=== PATIENT | female | born 1945 | race Caucasian/White ===

== ENCOUNTER 2023-10-10 06:32 | Outpatient (REF) | payer OTHER, SELFPAY ==
[2023-10-10 08:56] LABS: Blood Urea Nitrogen 23 mg/dL (9-16); Estimated Glomerular Filt Rate > 60
== END 2023-10-10 06:33 | disposition home or self-care (01) ==
LOC: HO.LAB 06:32
PROVIDERS: PCP Internal Medicine; Visit Provider Psychiatry & Neurology Neurology
DX: R42 Dizziness and giddiness (principal)
CPT/HCPCS: 36415; 82565; 84520

== ENCOUNTER 2023-10-19 09:48 | Outpatient (REF) | payer OTHER, SELFPAY ==
--- NOTE | ~2023-10-19 | CT_ITS ---
EXAMINATION: CT SCAN OF THE HEAD CT ANGIOGRAM HEAD CT ANGIOGRAM NECK CLINICAL INFORMATION: Dizziness and giddiness, Vertebral basilar insufficiency COMPARISON: MRI brain on 11/15/2022 DLP: 2266 mGy-cm EXAMINATION: CT brain. FINDINGS: Ventricles, sulci and cisterns are mildly dilated. Small elliptical focal encephalomalacia consistent with chronic infarct is again visualized at inferior anterior lateral right cerebellum. There is no midline shift, no abnormal intra- or extra- axial fluid accumulation. Mccabe and white matter differentiation is normal. Post contrast images show normal enhancement of major intracerebral blood vessels. No enhancing intracranial lesion or abnormal meningeal enhancement could be seen. Bone window images show no evidence of skull fracture. CT/CT angio head neck IMPRESSION: 1. Mild age related cerebral atrophy. 2. No intracranial hemorrhage or skull fracture is seen. 3. No evidence of space occupying or enhancing intracranial lesion could be found. 4. The current plain CT scan of the brain shows no diagnostic evidence of acute cerebral infarction. EXAMINATION: CT angiogram of brain. CLINICAL INFORMATION: Dizziness and giddiness, Vertebral basilar insufficiency . TECHNIQUE: CT angiogram of the brain was performed C7 following the administration of 70 mL of Omnipaque 350. Coronal and sagittal images were reconstructed from axial image data. 3-dimensional volumetric maximum intensity projection images in multiple planes were reconstructed on an independent workstation. This was performed under concurrent direct supervision and monitoring by radiologist. Reformatted maximum intensity projection angiographic images of the brain were reconstructed on an independent workstation. This CT examination was performed using dose optimization techniques as appropriate, variously including the following: *Automated exposure control *Adjustment of mA and/or kV according to patient size (this includes techniques or standardized protocols for targeted exams where dose is matched to indication/reason for exam; i.e. extremities or head) *Use of iterative reconstruction technique DLP: 2266 mGy-cm FINDINGS: There is normal visualization of bilateral anterior, middle and posterior cerebral arteries, internal carotid arteries, basilar artery and terminal portions of bilateral vertebral arteries. Anterior communicating artery is normal. Bilateral posterior communicating arteries are not well visualized. Bilateral superior cerebellar arteries are patent. P1 segment of left posterior cerebral artery is hypoplastic with P2 segment perfused by the strong left posterior communicating artery. Bilateral internal carotid siphons are smoothly patent. Tram track shaped atherosclerotic calcifications are seen in bilateral internal carotid siphons without causing hemodynamically significant stenosis. There is normal contrast filling of the cerebral venous sinuses. IMPRESSION: 1. origin of left posterior cerebral artery is seen, normal variant. 2. No focal cerebral arterial lesion or significant arterial stenosis is seen. EXAMINATION: CT angiogram of neck. CLINICAL INFORMATION: Dizziness and giddiness, Vertebral basilar insufficiency TECHNIQUE: Contrast enhanced CT angiogram of the neck and superior mediastinum was performed following the administration of 70 mL of Omnipaque 350. 3-dimensional volumetric maximum intensity projection images in multiple planes were reconstructed on an independent workstation. This was performed under concurrent direct supervision and monitoring by radiologist. Reformatted maximum intensity projection angiographic images of the neck and superior mediastinum were reconstructed on an independent workstation. Magnified images of carotid bifurcations were reconstructed. This CT examination was performed using dose optimization techniques as appropriate, variously including the following: *Automated exposure control *Adjustment of mA and/or kV according to patient size (this includes techniques or standardized protocols for targeted exams where dose is matched to indication/reason for exam; i.e. extremities or head) *Use of iterative reconstruction technique DLP: 2266 mGy-cm STENOSIS MEASUREMENT: Degree of stenosis was measured and calculated based on NASCET criteria. Carotid stenosis reference using NASCET criteria: % stenosis = (1 - narrowest ICA diameter/diameter of distal cervical ICA) x 100. Mild - < 50% stenosis. Moderate - 50-69% stenosis. Severe - 70-94% stenosis. Near occlusion - 95-99% stenosis. Occluded - 100% stenosis. FINDINGS: RIGHT SIDE: Right internal carotid artery: Smoothly patent, markedly tortuous, making 2 hairpin turns, protruding into the lateral border of nasopharynx. Right external carotid artery: Smoothly patent. Right common carotid artery: Smoothly patent. Prominent atherosclerotic calcifications are seen in upper right common carotid artery without causing hemodynamically significant stenosis. Right vertebral artery: Smoothly patent. LEFT SIDE: Left internal carotid artery: Smoothly patent, markedly tortuous, making 2 hairpin turns, protruding into the lateral border of nasopharynx. Left external carotid artery: Smoothly patent. Left common carotid artery: Smoothly patent. Prominent atherosclerotic calcifications are seen in upper left common carotid artery without causing hemodynamically significant stenosis. Left vertebral artery: Smoothly patent and dominant. At the superior mediastinum, the visualized right innominate artery, bilateral subclavian arteries and common carotid arteries are smoothly patent starting from the origin at the aortic arch. Calcified atherosclerotic plaques are seen in proximal left subclavian artery, distal right innominate artery without causing hemodynamically significant stenosis. Multilevel cervical spondylosis including advanced degenerative cervical disc disease is seen. IMPRESSION: 1. Bilateral upper common carotid artery calcified atherosclerotic plaques are present. No evidence of significant carotid stenosis. 2. Patent bilateral vertebral arteries with left-sided dominance.
[2023-10-19] MEDS: iohexoL 350 MG/ML 100 ML INFUS..BTL 70 ML IV (10:57)
== END 2023-10-19 09:49 | disposition home or self-care (01) ==
LOC: HO.CT 09:48
PROVIDERS: PCP Internal Medicine; Visit Provider Psychiatry & Neurology Neurology
DX: R42 Dizziness and giddiness (principal)
CPT/HCPCS: 70496; 70498; Q9967

== ENCOUNTER 2024-10-24 09:54 | Outpatient (AMB) | payer OTHER, SELFPAY ==
--- NOTE | 2024-10-24 09:57 | MHC.OFFVIS ---
Vital Signs 10/24/24 09:58 Height 5 ft 5 in Intake Visit Reasons: 6m/ bet Allergies amoxicillin Allergy (Unknown, Verified 10/24/24 10:02) Unknown Medication List - Last Reconciled 10/24/24 by Ene Lay CNP aspirin 81 mg PO DAILY cholecalciferol (vitamin D3) 25 mcg PO DAILY hydrochlorothiazide 25 mg PO DAILY losartan 100 mg PO DAILY lovastatin 40 mg PO DAILY [id number]-vit E-bpfkkx-zcgysjo 200 mcg-15 mcg- 5 mg-1 mg (PreserVision AREDS 2 Plus Multivit) caps PO trazodone 100 mg PO BEDTIME PRN HPI Comments Details: 79-year-old woman with intermittent head tremor beginning in 2018, intermittent hand tremors starting in 2022, and lightheaded dizziness for the last few years. Tremors do not cause any functional impairment, although her handwriting is not as good. She used to get some visual darkening and sensation of presyncope even as a child. Since 2022, she has had 2 episodes of vertigo lasting a few hours. She does not have any hearing loss. She was doing okay. She had one episode of presyncopal feeling lasting few minutes when cooking on 10/21/2024. She took some deep breaths and it resolved. No other significant episodes. No falls or syncope. No true vertigo. No headaches. Head and hand tremors are stable. She notices tremors more at temple when hands are folded in prayer. No functional impairment. No difficulty eating, drinking, or swallowing. Sleep was okay. Had L TKR on 06/21/2024 which went well. [facility] Medical History (Updated 10/24/24 @ 10:00 by Ene Lay CNP) Benign essential tremor Hypertension Surgical History (Updated 10/24/24 @ 10:08 by Ene Lay CNP) S/P TKR (total knee replacement) Review of Systems Const Denies chills, Denies daytime sleepiness, Denies difficulty sleeping, Denies fatigue, Denies fever(s), Denies frequent falls, Denies headache(s), Denies increased appetite, Denies poor appetite, Denies snoring, Denies weakness, Denies weight gain and Denies weight loss Eyes Denies loss of vision ENT Denies vertigo, Reports dizziness, Denies headache(s) and Denies neck pain Card Denies chest pain at rest, Denies chest pain with activity, Denies syncope, Denies leg edema, Denies palpitations, Denies dyspnea and Denies dyspnea on exertion Resp Denies cough, Denies dyspnea, Denies dyspnea on exertion and Denies snoring GI Denies abdominal pain, Denies constipation, Denies heartburn, Denies diarrhea and Denies nausea Denies urinary frequency, Denies urinary incontinence and Denies urinary urgency Musc Denies abnormal gait, Denies back pain, Denies myalgias, Reports arthralgias, Denies neck pain, Denies numbness and Denies tingling Neuro Denies abnormal gait, Denies vertigo, Reports dizziness, Denies syncope, Denies frequent falls, Denies headache(s), Denies lack of coordination, Denies loss of vision, Denies memory loss, Denies numbness, Denies Other visual disturbances, Denies restless legs, Denies seizure-like activity, Denies tingling, Denies paresthesias, Reports tremor(s) and Denies weakness Psych Reports anxiety, Denies depression, Denies auditory hallucinations, Denies memory loss and Denies visual hallucinations Endo Denies fatigue and Denies palpitations Physical Exam Const Other: General Appearance:? normal, in no acute distress. Heart:? S1, S2 normal, no murmurs. Lungs:? clear anteriorly and posteriorly. Musculoskeletal:? normal. Extremities:? no edema. Psych:? alert, oriented, cognitive function intact, cooperative with exam. Neuro Other: Abnormal Neurological Findings:?Mild head titubation, mild bilateral hand tremor on sustained posture (L > R) Mental Status: alert and oriented X 3. Normal attention, orientation, memory, and affect. Cranial Nerves: Pupils are equal, round, and reactive to light. External ocular muscles are intact. Visual moore are full, no ptosis. Face is symmetrical, no facial weakness or droop. Facial sensations are normal. Tongue protrudes in midline. Palate elevates symmetrically. Shoulder shrugging is normal Motor Examination: Normal muscle tone, bulk and strength. No atrophy or fasciculations. No drift of the extended upper extremities. DTR 2+. Plantars are flexor. Straight Leg Raisin degrees. Sensory Exam: Normal light touch, temperature, pinprick, vibration, and joint-position sensations. Rhomberg sign is absent. Coordination: No ataxia. No titubation. [id number]-cq-[id number], iedy-vbue-akqa test, and rapid alternating movements were normal. Gait Exam: Within normal limits. Cerebellar Signs: Kuolas-ub-ioke and pepj-xk-omiz is normal. No dysdiadochokinesia. Extrapyramidal System: Tremor as above. No rigidity with normal facial expressions. No bradykinesia. No bradyphrenia. Normal arm swing and posture. No propulsion or retropulsion. Speech: Normal. No dysphasia or dysarthria. Results Reviewed Results Reviewed: 11/25/23 EEG- WNL. 06/28/23 MRI brain: age appropriate atrophy and minor microvascular changes 10/2023 CTA head/neck 1. Bilateral upper common carotid artery calcified atherosclerotic plaques are present. No evidence of significant carotid stenosis.2. Patent bilateral vertebral arteries with left-sided dominance. Assessment & Plan Assessment & Plan (1) Benign essential tremor: Code(s): G25.0 - Essential tremor Category: Medical Plan: Tremors are minimal and there is no functional impairment. No indication for medication at this time, which she is agreeable. (2) Dizziness: Code(s): R42 - Dizziness and giddiness Category: Medical Plan: . Plan . Coding Level of Care Code Est Pt Level 3 (76692) Diagnoses Benign essential tremor G25.0 Dizziness R42
--- OUTSIDE RECORDS SUMMARY | 2024-10-24 10:29 | XMS_ITS | Clinical Summary ---
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 Active ascorbic acid (VITAMIN C) 500 mg tablet Take 1 tablet (500 mg total) by mouth 1 (one) time each day. Active calcium carbonate-vitam in D3 600 mg-20 mcg (800 unit) tablet Take by mouth. Active coenzyme Q-10 100 mg capsule Take by mouth daily. Active fluticasone propionate (FLONASE) 50 mcg/actuation nasal spray 2 sprays 1 (one) time each day if needed. 08/04/2017 Active folic acid (FOLVITE) 400 mcg tablet Take 400 mcg by mouth daily. Active magnesium 250 mg tablet Take by mouth. Active [id number]-[id number]-ZE ON-VITAMIN K ORAL 1 tablet daily Active niacin 500 mg tablet Take 500 mg by mouth. Active omega-3 fatty acids 1,000 mg capsule Stop a wk prio to sx Active cholecalciferol (VITAMIN D-3) 25 mcg (1,000 unit) capsule Take 1 capsule (1,000 Units total) by mouth 1 (one) time each day. 03/19/2022 Active hydroCHLOROthia zide (HYDRODIURIL) 25 mg tablet Take 1 tablet (25 mg total) by mouth 1 (one) time each day. 90 tablet 1 03/23/2024 Active losartan (COZAAR) 100 mg tablet Take 1 tablet (100 mg total) by mouth 1 (one) time each day. at bedtime. 90 tablet 1 03/23/2024 Active lovastatin (MEVACOR) 40 mg tablet Take 1 tablet (40 mg total) by mouth at bedtime. at bedtime. 90 tablet 1 03/23/2024 Active metoprolol succinate (TOPROL-XL) 25 mg 24 hr tablet Take 1 tablet (25 mg total) by mouth 1 (one) time each day. 90 tablet 1 03/23/2024 Active traZODone (DESYREL) 50 mg tablet Take 2 tablets (100 mg total) by mouth at bedtime. 180 tablet 1 03/23/2024 Active aspirin 81 mg EC tablet Take 1 tablet (81 mg total) by mouth 2 (two) times a day. 60 each 06/22/2024 Active Active Problems Problem Noted Date Diagnosed Date Status post total knee replacement 06/21/2024 Primary osteoarthritis of left knee 06/05/2024 Allergic rhinitis 03/21/2024 HTN (hypertension) 02/18/2024 PAC (premature atrial contraction) 08/23/2023 White matter abnormality on MRI of brain 1st degree AV block 08/05/2023 Overview (02/18/2024): Sinus bradycardia with first-degree AV block noted on 06/13/2023 during emergency room. Tracing received. Holter monitor ordered. Ascending aorta dilatation ([facility] V24) 024 Overview (02/18/2024): 3.7 cm Insomnia 09/18/2020 CKD (chronic kidney disease) , stage III (CMS/HCC V24, CMS/HCC V28) 01/04/2020 Enchondroma of right tibia 03/22/2019 Senile tremor 11/02/2018 Esophageal reflux 08/29/2007 Overweight (BMI 25.0-29.9) 08/29/2007 Pure hypercholesterolemia 08/29/2007 History of non-Hodgkin lymphoma Overview (03/23/2024): chemo & radiation, 2012 History of uterine cancer Overview (03/23/2024): : stage 1 - no chemo or radiation, s/p hysterectomy Encounters Date Type Department Care Team Description 09/21/2024 8:30 AM EDT Office Visit Adult Medicine [address] [phone] Whitley Zaragoza PA Encounter for annual wellness visit (AWV) in Medicare patient (Primary Dx); Pure hypercholesterolemia; Primary hypertension; Ascending aorta dilatation ([facility] V24); Stage 3a chronic kidney disease ([facility] V24, [facility] V28); Overweight (BMI 25.0-29.9) from Last 3 Months Immunizations Name Administration Dates Next Due H1N1 Inj Preservative Free 04/15/2009 Influenza trivalent, 0.5mL ( Fluad) 65yo and older 12/14/2023,12/28/2021,12/23/2020,11/23,01/02/2019,12/21/2017,12/23/2016 ,01/16/2016,01/11/2015 Influenza trivalent, 0.5mL, preservative free (Fluarix; FluLaval; Fluzone) ages 6mo and older (Afluria) 3 years and older 01/17/2014,12/14/2012,12/27/2011,02/16,02/23/2009 Pfizer (ages 12 & older) Biv alent, COVID-19 12/14/2023,08/11/2022,12/28/2021 Pfizer SARS-CoV-2 COVID-19, mRNA, LNP-S, preservative free 07/16/2021,01/15/2021 Pneumococcal conjugate 13 va lent (Prevnar 13, PCV13) 2mo and older 07/08/2014 Pneumococcal polysaccharide 23 valent (Pneumovax 23) 2yo and older 02/28/2013 RSV, bivalent, protein subun it RSVpreF, 0.5mL, Preservative Free (Arexvy) 60yo and older 04/08/2023 Respiratory syncytial virus (RSV), unspecified 04/08/2023 Td Tetanus diptheria (Tdvax) 7yo and older 10/13/2017 Tdap Tetanus diptheria acell ular pertussis (Boostrix; Adacel) 7yo and older 08/29/2007 Zoster Live 07/05/2013 Zoster recombinant (Shingrix ) 19yo and older 09/20/2019,06/12/2019 Surgical History Surgery Date Site/Laterality Comments OOPHORECTOMY 1996 R ovary TUBAL LIGATION 1996 KNEE ARTHROSCOPY 2006 L knee TONSILLECTOMY as child high school COLONOSCOPY 2006 : [facility]; normal COLONOSCOPY 07/06/2011 Normal; [facility]. F/u 10 yr CARPAL TUNNEL RELEASE 12/25/2014 Right OTHER SURGICAL HISTORY 2011 Left Non-Hodgkin's lymphoma HYSTERECTOMY SCREENING MAMMOGRAM 03/16/2024 Bilateral ROTATOR CUFF REPAIR Right Medical History Medical History Date Comments HTN (hypertension) History of uterine cancer 09/2006 : stag e 1 - no chemo or radiation Obesity, unspecified 08/29/2007 DX:Obesity, unspecified Pure hypercholesterolemia 08/29/2007 Esophageal reflux 08/29/2007 Prior Prevacid Arthritis : knee, shown on 01/15 MRI 1st degree AV block 08/05/2023 Sinus bradyc ardia with first-degree AV block noted on 06/13/2023 during emergency room. Tracing received. Holter monitor ordered. Ascending aorta dilatation ([facility] V24) 024 3.7 cm CKD (chronic kidney disease) , stage III ([facility] V24, [facility] V28) 01/04/2020 Senile tremor 11/02/2018 White matter abnormality on MRI of brain 024 Dysphagia Depression Chronic pain disorder Primary osteoarthritis of left knee 06/05/2024 Cancer ([facility] V24, [facility] V28) LYMPHOMA WITH CHEMO AND RADIATION Family History Medical History Relation Name Comments Hypertension Brother dm Stroke Father Asthma Maternal Grandmother Colon cancer Mother unsure of prima ry; uterine cancer Breast cancer Neg Hx Ovarian cancer Neg Hx Relation Name Status Comments Brother Alive Father (Age 84) Maternal Grandfather (Age 70s) U K x blacked out and fell and hit his head Maternal Grandmother (Age 84) Mother (Age 62) Paternal Grandfather [place] Paternal Grandmother Social History Tobacco Use Types Packs/Day Years Used Date Smoking Tobacco: Never Smokeless Tobacco: Never Tobacco Cessation:Counseling Given: Not Answered Alcohol Use Standard Drinks/Week Comments Not Currently 0 (1 standard drink = 0.6 oz pur e alcohol) Housing Instability Answer Date Recorde d Are you worried that in the next 2 months you may not have stable housing? No 09/21/2024 Food Access & Nutrition Answer Date Rec orded Do you have access to a vari ety of food including fruits and vegetables? No 09/21/2024 Access to Healthcare Answer Date Record ed Within the last 3 months, ho w many times did you visit the emergency department for your medical care? 0 09/21/2024 Health Literacy Answer Date Recorded How often do you need to hav e someone help you when you read instructions, pamphlets, or other written material from your doctor or pharmacy? Never 09/21/2024 Caregiver: How often do you need to have someone help you when you read instructions, pamphlets, or other written material from your doctor or pharmacy? Not on file 09/21/2024 Financial Risk Answer Date Recorded How hard is it for you to pa y for the very basics like food, housing, medical care, and air conditioning / heating? Not very hard 09/21/2024 Transportation Answer Date Recorded Has the lack of transportati on kept you from meetings, work, or from getting things needed for daily living? No Has the lack of transportati on kept you from medical appointments or from getting medications? No 09/21/2024 Social Isolation Answer Date Recorded How often do you feel lonely or isolated from th ose around you? Never 09/21/2024 Food Risk Answer Date Recorded Within the past 12 months we worried whether our food would run out before we got money to buy more. Never true 09/21/2024 Within the past 12 months th e food we bought just didn't last and we didn't have money to get more. Never true 09/21/2024 Dependent Care Answer Date Recorded Do you need help finding or paying for care for your loved ones. For example, childhood development teacher or elderly care for an older adult? No 09/21/2024 Education Answer Date Recorded Do you think completing more education or training, like finishing a GED, going to college, or learning a trade, would be helpful for you? N/A 09/21/2024 Employment and Income Answer Date Recor ded During the last four weeks, have you been actively looking for work? No 09/21/2024 Living Situation Answer Date Recorded What is your living situation? 0 09/21/2024 Interpersonal Safety Answer Date Record ed Physical Abuse 06/21/2024 Verbal Abuse 06/21/2024 Comments No Sex and Gender Information Value Date Recorded Sex Assigned at Female 03/09/2024 1:36 PM EST Legal Sex Female 10:11 AM EST Gender Identity Female 03/09/2024 1:36 PM EST Sexual Orientation Straight 06/21/2024 6: 14 AM EDT Obstetrics History Para Term AB IAB SAB Ectopic Multiple Livin g Live Births 2 2 2 2 Date Outcome GA Total Labor Labor/2nd/3rd Weight Sex Type Anes PTL Rachel A1 A5 Name Clin Term Term Last Filed Vital Signs Vital Sign Reading Time Taken Comments Blood Pressure 118/70 09/21/2024 9:00 AM EDT Pulse 75 09/21/2024 9:00 AM EDT Temperature 36.1 C (96.9 F) 09/21/2024 9:00 AM EDT Respiratory Rate 16 06/25/2024 10:21 AM EDT Oxygen Saturation 97% 09/21/2024 9:00 AM EDT Inhaled Oxygen Concentration - - Weight 79.8 kg (176 lb) 09/21/2024 9:00 AM EDT Height 165.1 cm (5' 5 ) 06/25/2024 10:21 AM EDT Body Mass Index 29.29 06/25/2024 10:21 AM EDT Plan of Treatment Upcoming Encounters Date Type Department Care Team (Late st Contact Info) Description 03/25/2025 8:15 AM EST Office Visit Adult Medicine [address] [phone] Kathy Quinteros MD [address] [place] [address] 03/25/2025 9:20 AM EST Appointment Radiology Department - [address] [phone] Health Maintenance Due Date Last Done Comments COVID-19 Vaccine ( season) 2024 12/14/2023, 2023, 12/29/2022, Additional history exists Influenza Vaccine (#1) 2024 , 12/28/2021, 12/23/2020, Additional history exists Depression Screening 05/30/2025 05/30/2024 Hypertension/CHF/CAD Annual BMP Blood Test 06/22/2025 06/22/2024, 05/22/2024, 03/16/2024, Additional history exists Falls Risk Assessment 09/21/2025 09/21/2024, 025 Social Influencers of Health Screening 09/21/2025 09/21/2024 DTaP,Tdap,and Td Vaccines (3 - Td or Tdap) 10/14/2027 10/13/2017, 08/29/2007 Cholesterol Screening (Lipid Panel) 03/16/2029 03/16/2024, 03/16/2023 Osteoporosis Screening (Bone Density Screening) 03/02/2031 03/02/2021, 02/19/2019, 02/02/2017 Colorectal Cancer Screening: Colonoscopy Discontinued 07/06/2011 Hepatitis C Screening Completed 04/25/2013 Pneumococcal Vaccine: 50+ Years Completed 07/08/2014, 02/28/2013 Zoster Vaccines Completed 09/20/2019, 06/2019, 07/05/2013 RSV Immunization Adult Patients Completed 04/08/2023, 04/08/2023 RSV Immunization Patients Under 20 months Aged Out 04/08/2023 No longer eligible based on patient's age to complete this topic Breast Cancer Screening Discontinued 03/16/20, 03/09/2023, 03/03/2022, Additional history exists HIB Vaccines Aged Out No longer eligi ble based on patient's age to complete this topic HPV Vaccines Aged Out No longer eligi ble based on patient's age to complete this topic Hepatitis A Vaccines Aged Out No long er eligible based on patient's age to complete this topic Hepatitis B Vaccines Aged Out No long er eligible based on patient's age to complete this topic IPV Vaccines Aged Out No longer eligi ble based on patient's age to complete this topic MMR Vaccines Aged Out No longer eligi ble based on patient's age to complete this topic Meningococcal ACWY Vaccine Aged Out N o longer eligible based on patient's age to complete this topic Meningococcal B Vaccine Aged Out No l onger eligible based on patient's age to complete this topic Varicella Vaccines Aged Out No longer eligible based on patient's age to complete this topic Medical Devices Implanted Type Area Telegraphic Instrument Supervisor Device Identifier Shelf Expiration Date Model / Serial / Lot Cement Bone Simplex Full Dose - Snone - [id number] Implanted:Qty: 2 on 06/21/2024 by Connor Klein MD at [facility] Bone Cement Left: Knee [employer] 08/08/2026 6191-1-0 01 / NONE / [id number] Pin Flut Hdless 1/8x3.5in Ster 4pk Eapk - Sn/A - [id number] Implanted:Qty: 1 on 06/21/2024 by Connor Klein MD at [facility] Internal and External Fixation Left: Knee [employer] 05/15/2029 7650-203 8A / N/A / [id number] Plug Bone Sm - Snone - [id number] Implanted:Qty: 1 on 06/21/2024 by Connor Klein MD at [facility] Joints Hip Left: Knee [employer] [id number] 02/26/2029 6215-5-0 01 / NONE / [id number] Knee Compon Fem Cmnt Sz4 L - [employer]one - [id number] Implanted:Qty: 1 on 06/21/2024 by Connor Klein MD at [facility] Joints Knee Left: Knee [employer] [id number] 08/05/2026 5510-F-4 01 / NONE / [id number] Knee Tib Baseplate Sz 4 Rt-Lt - [employer]one - [id number] Implanted:Qty: 1 on 06/21/2024 by Connor Klein MD at [facility] Joints Knee Left: Knee [employer] [id number] 02/26/2029 5521-B-4 00 / NONE / [id number] Insert Tibial 14mm Sz4 Triathlon Polyethylene Condylar Strl - Snone - [id number] Implanted:Qty: 1 on 06/21/2024 by Connor Klein MD at [facility] Joints Knee Left: Knee [employer] [id number] 12/07/2028 5531-G-4 14-E / NONE / [id number] Knee Pat Asymmetric X3 [id number] - Snone - [id number] Implanted:Qty: 1 on 06/21/2024 by Connor Klein MD at [facility] Joints Knee Left: Patella [employer] [id number] 10/08/2028 5551-G-3 20-E / NONE / [id number] Procedures Procedure Name Priority Date/Time Associated Diagnosis Comments BASIC METABOLIC PANEL Routine 06/22/2024 5:22 AM EDT LIPID PANEL WITH REFLEX TO DIRECT LDL Routine 03/16/2024 8:55 AM EST Pure hypercholesterolemia Essential hypertension, malignant Stage 3a chronic kidney disease (CMS/HCC V24, CMS/HCC V28) MG MAMMO DIGITAL SCREENING W DAMON BILAT Routine 03/16/2024 8:30 AM EST Encounter for screening mammogram for breast cancer DXA BONE DENSITY STUDY 1+ SITS AXIAL SKEL Routine 03/02/2021 3:18 PM EST Unspecified menopausal and perimenopausal disorder HEPATITIS C SCREENING Routine 04/25/2013 from Last 3 Months or Most Recently Relevant to Health Maintenance Results * Basic metabolic panel (06/22/2024 5:22 AM EDT) Sodium 137 133 - 145 mmol/L LAB CHEMISTRY METHOD 06/22/2024 7:34 AM EDT [facility] Potassium 3.9 3.5 - 5.5 mmol/L LAB CHEMISTRY METHOD 06/22/2024 7:34 AM [facility] Chloride 101 96 - 110 mmol/L LAB CHEMISTRY METHOD 06/22/2024 7:34 AM [facility] CO2 31 21 - 32 mmol/L LAB CHEMISTRY METHOD 06/22/2024 7:34 AM [facility] Anion Gap 5 3 - 11 LAB CHEMISTRY METHOD 06/22/2024 7:34 AM [facility] Glucose 96 70 - 100 mg/dL LAB CHEMISTRY METHOD 06/22/2024 7:34 AM [facility] BUN 19 5 - 25 mg/dL LAB CHEMISTRY METHOD 06/22/2024 7:34 AM [facility] Creatinine 0.84 0.50 - 1.10 mg/dL LAB CHEMISTRY METHOD 06/22/2024 7:34 AM [facility] eGFR 72 >=60 mL/min/1. 73m2 LAB CHEMISTRY METHOD 06/22/2024 7:34 AM [facility] Comment:Calculation based on the Chronic Kidney Disease Epidemiology Collaboration (CKD-EPI) equation refit without adjustment for race. BUN/Creatinine Ratio 22.6 LAB CHEMISTRY METHOD 06/22/2024 7:34 AM [facility] Calcium 8.6 8.5 - 10.5 mg/dL LAB CHEMISTRY METHOD 06/22/2024 7:34 AM [facility] Blood Venous blood specimen / Unknown Venipuncture / Unknown 06/22/2024 5:22 AM EDT 06/22/2024 6:58 AM EDT us Venita MOSER LAB BLOOD ORDERABLES Final R esult [facility] [address] [place] [address], [place] [phone] * Lipid panel with reflex to direct LDL (03/16/2024 8:55 AM EST) Cholesterol 195 0 - 200 mg/dL LAB CHEMISTRY METHOD 03/16/2024 12:33 PM EST [facility] Triglycerides 85 0 - 150 mg/dL LAB CHEMISTRY METHOD 03/16/2024 12:33 PM [facility] HDL 101 >=40 mg/dL LAB CHEMISTRY METHOD 03/16/2024 12:33 PM [facility] LDL Calculated 77 0 - 100 mg/dL LAB CHEMISTRY METHOD 03/16/2024 12:33 PM EST [facility] VLDL Cholesterol Mario 17 mg/dL LAB CHEMISTRY METHOD 03/16/2024 12:33 PM [facility] Non HDL Chol. (LDL+VLDL) 94 <145 mg/dL LAB CHEMISTRY METHOD 03/16/2024 12:33 PM [facility] Chol/HDL Ratio 1.9 0.0 - 4.4 LAB CHEMISTRY METHOD 03/16/2024 12:33 PM EST [facility] Blood Venous blood specimen / Unknown Venipuncture / Unknown 03/16/2024 8:55 AM EST 03/16/2024 8:55 AM EST us Kathy Quinteros MD LAB BLOOD ORDERABLES Final Resul t [facility] [address] [place] [address], [place] [phone] * MG Mammo Digital Screening w Damon bilat (03/16/2024 8:30 AM EST) Anatomical Region Laterality Modality Breast Bilateral Mammography 03/19/2024 8:27 AM EST Impressions 03/19/2024 8:27 AM EST No mammographic evidence of malignancy. BREAST DENSITY: B - There are scattered areas of fibroglandular density. BI-RADS CATEGORY: 1 - NEGATIVE RECOMMENDATION: Screening bilateral mammogram is recommended in 1 year. MAMMO LOCATION: [facility], [address], [place], [address], . -------- FINAL REPORT -------- Dictated By: Allyson Emerson Dictated Date: 03/19/2024 08:27 ET Assigned Physician: Allyson Emerson Reviewed and Electronically Signed By: Allyson Emerson Signed Date: 03/19/2024 08:27 ET Workstation ID: [id number] Transcribed By: Self Edit Transcribed Date: 03/19/2024 08:27 ET Narrative 03/19/2024 8:27 AM EST EXAM: Screening Mammogram CLINICAL: 78 years old, Female, routine annual exam. COMPARISON: 03/09/2023 and as far back as 02/21/2020 TECHNIQUE: Bilateral MLO and CC views were obtained digitally with 3-D mammogram (digital breast tomosynthesis). Computer-aided detection was utilized in evaluation of this exam (CAD). FINDINGS: No new suspicious mass, architectural distortion, or suspicious calcifications. Procedure Note Allyson Emerson MD - 03/19/2024 EXAM: Screening Mammogram CLINICAL: 78 years old, Female, routine annual exam. COMPARISON: 03/09/2023 and as far back as 02/21/2020 TECHNIQUE: Bilateral MLO and CC views were obtained digitally with 3-Dmammogram (digital breast tomosynthesis). Computer-aided detection wasutilized in evaluation of this exam (CAD). FINDINGS: No new suspicious mass, architectural distortion, or suspiciouscalcifications. IMPRESSION: No mammographic evidence of malignancy. BREAST DENSITY: B - There are scattered areas of fibroglandular density. BI-RADS CATEGORY: 1 - NEGATIVE RECOMMENDATION: Screening bilateral mammogram is recommended in 1 year. MAMMO LOCATION: [facility], [address] [place] [address], [id number], . -------- FINAL REPORT -------- Dictated By: Allyson Emerson Dictated Date: 03/19/2024 08:27 ET Assigned Physician: Allyson Emerson Reviewed and Electronically Signed By: Allyson Emerson Signed Date: 03/19/2024 08:27 ET Workstation ID: [id number] Transcribed By: Self Edit Transcribed Date: 03/19/2024 08:27 ET Kathy Quinteros MD IMG BI PROCEDURES Final Result * DXA BONE DENSITY STUDY 1+ SITS AXIAL SKEL (03/02/2021 3:18 PM EST) Anatomical Region Laterality Modality Bone Densitometr y 03/20/2020 8:45 PM EST Narrative 03/03/2021 8:09 AM EST BONE DENSITY SCAN (DEXA) FINDINGS: Lumbar Spine T-score is -0.4. (SD relative to 20-29 y/o adult) Z-score is 1.9. (SD relative to age matched peers) This is considered normal by WHO criteria. Left Hip T-score is 0.1. Z-score is 2.1. This is considered normal by WHO criteria. Comparison: As recent as 02/19/2019 and as far back as 01/22/2013. Lumbar spine: 3.6% decrease in bone mineral density compared with 2018 and 6.7% decrease compared with 2012, both statistically significant at the 95% confidence level. Left hip: 9.3% decrease in bone mineral density compared with 2012, statistically significant at the 95% confidence level. No statistically significant change compared with 2018. . IMPRESSION: IMPRESSION: Normal bone mineral density by WHO criteria. The [facility] Department of Internal Medicine recommends using National Osteoporosis Foundation (NOF) guidelines in treatment decisions related to osteoporosis. NOF guidelines suggest considering treatment for postmenopausal women and men aged 50 or older presenting with the following: History of hip or vertebral fracture. T-score = -2.5 (DXA) at the femoral neck, total hip, or spine, after appropriate evaluation to exclude secondary causes. Low bone mass (T-score between -1.0 and -2.5 at the femoral neck or spine) AND a 10-year probability of a hip fracture = 3% OR a 10-year probability of a major osteoporosis-related fracture = 20% based on the [place]-adapted WHO algorithm Please note that all treatment decisions require clinical judgment and consideration of individual patient factors, including patient preferences, co-morbidities, previous drug use, risk factors not captured in the FRAX model (e.g., frailty, falls, vitamin D deficiency, increased bone turnover, interval significant decline in bone density) and possible under- or over-estimation of fracture risk by FRAX. Optional alternative screening schedule based on rob Laguerre., [facility] April 29, 2011 for patients with osteopenia (based on hip BMD T-score) is as follows: * advanced osteopenia (T scores -2.00 to -2.49), BMD testing every year * moderate osteopenia (T scores -1.50 to -1.99), BMD testing every 5 years mild osteopenia or normal BMD (T scores -1.50 and higher), BMD testing every 15 years Procedure Note Allyson Emerson MD - 04/15/2022 BONE DENSITY SCAN (DEXA) FINDINGS: Lumbar Spine T-score is -0.4. (SD relative to 20-29 y/o adult) Z-score is 1.9. (SD relative to age matched peers) This is considered normal by WHO criteria. Left Hip T-score is 0.1. Z-score is 2.1. This is considered normal by WHO criteria. Comparison: As recent as 02/19/2019 and as far back as 01/22/2013. Lumbar spine: 3.6% decrease in bone mineral density compared with 2019 and6.7% decrease compared with 2012, both statistically significant at the 95% confidencelevel. Left hip: 9.3% decrease in bone mineral density compared with 2013,statistically significant at the 95% confidence level. No statistically significant change comparedwith 2019. . IMPRESSION: IMPRESSION: Normal bone mineral density by WHO criteria. The [facility] Department of Internal Medicine recommendsusing National Osteoporosis Foundation (NOF) guidelines in treatment decisions related toosteoporosis. NOF guidelines suggest considering treatment for postmenopausal women and menaged 50 or older presenting with the following: History of hip or vertebral fracture. T-score = -2.5 (DXA) at the femoral neck, total hip, or spine, afterappropriate evaluation to exclude secondary causes. Low bone mass (T-score between -1.0 and -2.5 at the femoral neck or spine)AND a 10-year probability of a hip fracture = 3% OR a 10-year probability of a majorosteoporosis-related fracture = 20% based on the [place]-adapted WHO algorithm Please note that all treatment decisions require clinical judgment andconsideration of individual patient factors, including patient preferences, co- morbidities,previous drug use, risk factors not captured in the FRAX model (e.g., frailty, falls, vitaminD deficiency, increased bone turnover, interval significant decline in bone density) andpossible under- or over-estimation of fracture risk by FRAX. Optional alternative screening schedule based on nereida Laguerre al., NEJMJanuary 2011 for patients with osteopenia (based on hip BMD T-score) is as follows: * advanced osteopenia (T scores -2.00 to -2.49), BMD testing every year * moderate osteopenia (T scores -1.50 to -1.99), BMD testing every 5years mild osteopenia or normal BMD (T scores -1.50 and higher), BMD testingevery 15 years [facility] IMG DXA PROCEDURES Final Result * Hepatitis C Screening (04/25/2013) [facility] Hepatitis C Screening ABSTRACTED Historical Provider MD HEALTH MAINTENANCE Final Result from Last 3 Months or Most Recently Relevant to Health Maintenance Insurance [employer] Advance Directives Documents on File Type Date 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 Health Care Decision (hx) 12/19/2012 AD BLEVINS DIRECTIVE Health Care Decision (hx) 12/19/2012 AD BLEVINS DIRECTIVE Health Care Decision (hx) 12/19/2012 AD BLEVINS DIRECTIVE Health Care Decision (hx) 12/19/2012 AD BLEVINS DIRECTIVE Health Care Decision (hx) 12/19/2012 AD BLEVINS DIRECTIVE Health Care Decision (hx) 12/19/2012 AD BLEVINS DIRECTIVE Health Care Decision (hx) 12/19/2012 AD BLEVINS DIRECTIVE Health Care Decision (hx) 12/19/2012 AD BLEVINS DIRECTIVE * Full Code - Confirmed (Latest Code Status on File) Date Activated Date Inactivated Comments 06/21/2024 6:14 AM 06/22/2024 7:[address] [facility] was ascertained in the following way: Code status discussion: discussion with patient To update the patient's code status, place a code status order. Do not modify or discontinue any currently active code status orders. Care Teams Sales And Marketing Vice President Relationship Specialty Start Date End Date Kathy Quinteros MD [address] [place] [address] PCP - General Internal Medicine 07/17/20
--- OUTSIDE RECORDS SUMMARY | 2024-10-24 10:29 | XMS_ITS | Clinical Summary ---
Author Organization [facility] Address [address] [place] [id number] Care Team Providers Care Toll Line Repairer Name Role Phone Tammy Maxwell MD Primary Care Provider Allergies Active Allergy Reactions Criticality Noted Date Comments Amoxicillin 03/22/2019 Medications Medication Sig Dispensed Refills Start Date End Date Status vitamin C (ASCORBIC ACID) 500 MG tablet Take 500 mg by mouth. 0 Active aspirin (SB LOW DOSE ASA EC) 81 MG EC tablet 1 TABLET DAILY 0 Active Biotin 1000 MCG tablet Take 1 tablet by mouth. 0 Active chlorthalidone (HYGROTON) 25 MG tablet Take 25 mg by mouth. 0 03/05/2019 Active Coenzyme Q10 (CO Q-10) 100 MG CAPS Take by mouth. 0 Active vitamin B-12 (CYANOCOBALAMIN) 500 MCG tablet Take 500 mcg by mouth. 0 Active famotidine (PEPCID) 20 MG tablet Take 20 mg by mouth. 0 01/02/2019 Active fluticasone (FLONASE) 50 MCG/ACT nasal spray Apply 2 sprays into each nostril once daily 0 08/04/2017 Active folic acid (FOLVITE) 400 MCG tablet Take 400 mcg by mouth. 0 Active lovastatin (MEVACOR) 40 MG tablet Take 40 mg by mouth. 0 03/05/2019 Active MAGNESIUM PO Take by mouth. 0 Active metoprolol succinate (TOPROL-XL) 24 hr tablet 50 mg Take 50 mg by mouth. 0 03/05/2019 Active niacin 500 MG tablet Take 500 mg by mouth. 0 Active potassium chloride ER (K-DUR,KLOR-CON) tablet 20 mEq Take 40 mEq by mouth. 0 01/04/2019 Active traZODone (DESYREL) 50 MG tablet Take one tablet oral nightly as needed for sleep 0 11/28/2018 Active Melatonin 10 MG CAPS Take by mouth. 0 Active Multiple Vitamins-Minerals (WOMENS 50+ MULTI VITAMIN/MIN PO) Take by mouth. 0 Activ e Calcium Carb-Cholecalciferol (CALCIUM 600+D3) 600-800 MG-UNIT TABS Take by mouth. 0 Active Lactobacillus Rhamnosus, GG, (CULTURELLE PO) Take by mouth. 0 Activ e Multiple Vitamins-Minerals (PRESERVISION AREDS 2+MULTI VIT PO) Take by mouth. 0 Activ e FIBER ADULT GUMMIES PO Take 5 mg by mouth. 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 Arthritis of knee, right 03/22/2019 Effusion of right knee joint 03/22/2019 Family History Medical History Relation Name Comments Arthritis Brother Cancer Brother Diabetes Brother Hypertension Brother Arthritis Father Diabetes Father Heart attack Father Hypertension Father Stroke Father Arthritis Mother Cancer Mother Relation Name Status Comments Brother Father Mother Social History Tobacco Use Types Packs/Day Years Used Date Smoking Tobacco: Never Smokeless Tobacco: Never Alcohol Use Standard Drinks/Week Comments Yes 0 (1 standard drink = 0.6 oz pur e alcohol) 1-2x/month Sex and Gender Information Value Date Recorded Sex Assigned at Not on file Gender Identity Not on file Sexual Orientation Not on file Last Filed Vital Signs Vital Sign Reading Time Taken Comments Blood Pressure 136/80 05/08/2019 9:51 AM EST Pulse 60 05/08/2019 9:51 AM EST Temperature - - Respiratory Rate - - Oxygen Saturation - - Inhaled Oxygen Concentration - - Weight 78.5 kg (173 lb) 05/08/2019 9:51 AM EST Height 165.1 cm (5' 5 ) 05/08/2019 9:51 AM EST Body Mass Index 28.79 05/08/2019 9:51 AM EST Plan of Treatment Health Maintenance Due Date Last Done Comments Hepatitis C Screening 1945 COVID-19 Vaccine (#1) 1945 Depression Screening 1959 Preventative Health Evaluation 06/26/1965 Shingrix-Zoster Vaccine (1 of 2) 06/26/1997 Fall Risk Assessment 06/26/2012 Osteoporosis Screening (DEXA Scan) 06/26/2012 DTap / Tdap / Td (2 - Td or Tdap) 08/28/2017 08/29/2007 RSV Adult > 60+ Yrs or (1 - 1-dose 75+ series) 06/26/2022 Influenza Vaccine (#1) 2024 9, 12/21/2017, 12/23/2016, Additional history exists Pneumococcal Vaccine Completed 07/08/2014, 02/29/20 13 Hepatitis B Vaccines Aged Out No long er eligible based on patient's age to complete this topic RSV Ped < 20 months Aged Out No longe r eligible based on patient's age to complete this topic Care Teams Toll Line Repairer Relationship Specialty Start Date End Date Tammy Maxwell MD PCP - General Internal Medicine 03/06/19
== END 2024-10-24 10:13 | disposition home or self-care (01) ==
LOC: HO.HSM 09:55
PROVIDERS: PCP Internal Medicine; Visit Provider Registered Nurse
DX: G25.0 Essential tremor (principal); R42 Dizziness and giddiness
CPT/HCPCS: 99213

== ENCOUNTER → 2024-10-24 09:54 | Outpatient (BNVA) | payer OTHER, SELFPAY | PROVIDERS: PCP Internal Medicine; Visit Provider Registered Nurse | DX: G25.0 Essential tremor (principal); R42 Dizziness and giddiness | CPT/HCPCS: 99212 ==